=== PATIENT | male | born 1985 | race Caucasian/White ===

== ENCOUNTER 2019-11-27 14:30 | Emergency (ER) | payer OTHER ==
[~2019-11-27] VITALS: Ht 172.7 cm; Wt 79.4 kg
[2019-11-27 14:30] VITALS: BP 137/42
[~2019-11-27 14:30] MED LIST: ALBUTEROL INHALER
[2019-11-27] MEDS ORDERED: LORazepam 2 MG/ML VIAL IVP ONE ×2 (14:35→15:35)
[2019-11-27] MEDS ORDERED: NACL 0.9% 1,000 ML IV ONE (14:35)
--- NOTE | 2019-11-27 14:35 | NUR ---
DR MELENDEZ AT BEDSIDE EVALUATING PT.
[2019-11-27] MEDS ORDERED: IBUPROFEN 600 MG TAB PO ONE (14:45)
[2019-11-27 14:55] LABS: BASOPHILS # (AUTO) 0.1 K/uL (0.00-0.22); BASOPHILS % (AUTO) 0.4 % (0.0-2.0); EOSINOPHILS # (AUTO) 0.1 K/uL (0-0.4); EOSINOPHILS % (AUTO) 1.2 % (0.0-4.0); HEMOGLOBIN 14.9 g/dL (12.0-18.0); LYMPHOCYTES # (AUTO) 1.7 K/uL (2.0-11.5); LYMPHOCYTES % (AUTO) 14.3 % (20.5-51.1); MEAN CORPUSCULAR HEMOGLOBIN 30 pg (27-31); MEAN CORPUSCULAR HGB CONC 33 g/dL (33-37); MEAN CORPUSCULAR VOLUME 89.8 fL (80-94); MONOCYTES # (AUTO) 0.6 K/uL (0.8-1.0); MONOCYTES % (AUTO) 5.1 % (1.7-9.3); NEUTROPHILS # (AUTO) 9.3 K/uL (1.8-7.7); PLATELET COUNT (AUTO) 457 K/uL (140-450); RED BLOOD CELL COUNT(AUTO) 5.01 MIL/uL (4.20-6.10); RED CELL DISTRIBUTION WIDTH 13.2 % (11.6-13.7); WHITE BLOOD COUNT (AUTO) 11.7 K/uL (4.8-10.8)
[2019-11-27 14:58] LABS: APPEARANCE,URINE CLEAR (CLEAR); BILIRUBIN,URINE NEGATIVE (NEGATIVE); BLOOD, URINE 2+ (NEGATIVE); COLOR,URINE YELLOW (YELLOW); LEUKOCYTE ESTERASE ,URINE NEGATIVE (NEGATIVE); NITRITE, URINE NEGATIVE (NEGATIVE); PH,URINE 5.5 (5.0-9.0); UGLUCOSE NEGATIVE (NEGATIVE)
--- NOTE | 2019-11-27 15:00 | NUR ---
EMT GABRIELLE MARIE EKG.
--- NOTE | 2019-11-27 15:00 | NUR ---
PATIENT BIBA FOR ALTERED LOC, PT ADMITS TO FENTANYL, BENZOS, AND HEORIN USE . PT AOX4, FIBRILE , DIAPHORETIC , PINK PALPEBRAL CONJUNCTIVA ,ANICTERIC SCLERA , SCE , FLAT SOFT ABDOMEN . HX - ASTHMA
--- NOTE | 2019-11-27 15:04 | NUR ---
XRAY AT BEDSIDE.
[2019-11-27 15:13] LABS: ALBUMIN 4.8 g/dL (3.4-5.0); ANION GAP 21.2 (8-16); ASPARTATE AMINOTRANSFERASE 42 U/L (15-37); CARBON DIOXIDE 20.5 mmol/L (21-32); CHLORIDE 105 mmol/L (98-107); CREATININE 1.8 mg/dL (0.6-1.3); GFR ARICAN-AMERICAN 56 mL/min (>90); GLUCOSE 82 mg/dL (74-106); POTASSIUM 4.7 mmol/L (3.5-5.1); SODIUM SERUM 142 mmol/L (136-145); TOTAL BILIRUBIN 0.6 mg/dL (0.0-1.0); UREA NITROGEN, BLOOD 19 mg/dL (7-18)
[2019-11-27 15:17] LABS: BARBITURATE, URINE NEGATIVE ng/ml (NEG <=200); BENZODIAZEPINE, URINE NEGATIVE ng/mL (NEG <=200); CANNABINOID, URINE POSITIVE ng/mL (NEG <=50); COCAINE, URINE NEGATIVE ng/mL (NEG <=300); OPIATE, URINE NEGATIVE ng/mL (NEG <=2000); PHENCYCLIDINE SCREEN,URINE NEGATIVE ng/mL (NEG <=25)
[2019-11-27 15:18] LABS: RBC,URINE 11-20 (MOD) /HPF (0-5); WBC,URINE 0-5 /HPF (0-5)
--- NOTE | 2019-11-27 15:31 | NUR ---
DR MELENDEZ AT BEDSIDE REEVALUATING PT.
--- NOTE | 2019-11-27 15:34 | NUR ---
GAVE FOOD AT BEDSIDE.
--- NOTE | 2019-11-27 15:43 | NUR ---
SPOKE TO PT FATHER ON THE PHONE ASKING FOR PT CONDITION , PT GAVE PERMISSION TO DISCLOSE INFORMATION WITH HIS FATHER.
[2019-11-27 15:45] LABS: CKMB RELATIVE INDEX 0.8 (0.0-2.5); CREATINE KINASE MB 3.8 ng/mL (0-3.6)
[2019-11-27 16:10] VITALS: BP 120/68
== END 2019-11-27 16:11 | disposition home or self-care (01) ==
LOC: MED 14:30
DX: F19.10 Other psychoactive substance abuse, uncomplicated (principal); N18.9 Chronic kidney disease, unspecified; J45.909 Unspecified asthma, uncomplicated; F15.10 Other stimulant abuse, uncomplicated; F12.10 Cannabis abuse, uncomplicated
CPT/HCPCS: 36415; 71045; 80053; 80305; 81001; 82550; 82553; 84484; 85025; 93005; 96361; 96374; 96376; 99285; G0482; J2060; J7030; Q0092; 96375